=== PATIENT | female | born 1995 | race Caucasian/White ===

== ENCOUNTER 2018-04-12 12:25 | Inpatient (IN) | payer MEDICAID ==
[~2018-04-12] VITALS: Ht 162.6 cm; Wt 63.5 kg
[2018-04-12 14:35] LABS: AMPHET/METH SCREEN,URINE NEGATIVE (NEGATIVE); BARBITURATE SCREEN, URINE NEGATIVE (NEGATIVE); BENZODIAZEPINES SCREEN,URINE NEGATIVE (NEGATIVE); CANNABINOID SCREEN,URINE NEGATIVE (NEGATIVE); COCAINE SCREEN,URINE NEGATIVE (NEGATIVE); METHADONE SCREEN, URINE NEGATIVE (NEGATIVE); OPIATE SCREEN,URINE NEGATIVE (NEGATIVE)
[2018-04-12] MEDS ORDERED: OLAN10TA3 PO ×2 (14:38)
[2018-04-12] MEDS ORDERED: HYDR50CA10 PO (14:38)
[2018-04-12] MEDS ORDERED: IBUP-2070 PO (14:38)
[2018-04-12] MEDS ORDERED: CEPH500 PO (14:38)
[2018-04-12] MEDS ORDERED: DIPH50 PO (14:38)
[2018-04-12 14:39] LABS: PHENCYCLIDINE SCREEN,URINE NEGATIVE (NEGATIVE)
[2018-04-12 14:45] LABS: BASOPHILS % (AUTO) 0.9 % (0.0-2.0); EOSINOPHILS % (AUTO) 0.3 % (1.0-6.0); HEMATOCRIT 37.7 % (36-46); HEMOGLOBIN 12.4 g/dL (12.0-16.0); LYMPHOCYTES # (AUTO) 1.8 K/uL (1.0-4.8); LYMPHOCYTES % (AUTO) 17.7 % (22.0-44.0); MEAN CORPUSCULAR HEMOGLOBIN 29.3 pg (26.0-34.0); MEAN CORPUSCULAR HGB CONC 32.8 G/dL (31.0-37.0); MEAN CORPUSCULAR VOLUME 89 fL (80-100); MONOCYTES # (AUTO) 0.5 K/uL (0.1-1.0); MONOCYTES % (AUTO) 4.9 % (2.0-9.0); NEUTROPHILS # (AUTO) 7.7 K/uL (1.8-7.7); NEUTROPHILS % (AUTO) 76.2 % (40.0-70.0); PLATELET COUNT (AUTO) 364 K/uL (150-450); RED BLOOD CELL COUNT(AUTO) 4.22 MIL/uL (4.00-5.20); RED CELL DISTRIBUTION WIDTH 14.5 % (11.5-14.5)
[2018-04-12 14:57] LABS: ANION GAP 12 mmol/L (8-16); CALCIUM, TOTAL 9.4 mg/dL (8.8-10.5); CARBON DIOXIDE 24 mmol/L (22-29); CHLORIDE 105 mmol/L (98-107); CREATININE 0.46 mg/dL (0.60-1.30); GLOMERULAR FILTR. RATE CALC > 60 mL/min (>60); GLUCOSE,RANDOM 98 mg/dL (70-110); POTASSIUM 3.6 mmol/L (3.5-5.1); SODIUM SERUM 141 mmol/L (136-145); UREA NITROGEN, BLOOD 13 mg/dL (7-18)
[2018-04-12] MEDS ORDERED: LORazepam 2 MG/ML VIAL IM ONE ×2 (15:00→15:15)
[2018-04-12] MEDS ORDERED: HALOPERIDOL LACTATE 5 MG/ML VIAL IM ONE (15:00)
[2018-04-12 15:10] LABS: ALANINE AMINOTRANSFERASE 34 U/L (12-78); ALKALINE PHOSPHATASE 72 U/L (46-116); ASPARTATE AMINOTRANSFERASE 18 U/L (15-37); BILIRUBIN,TOTAL 0.2 mg/dL (0.1-1.0); HCG,QUANTITATIVE < 1 mIU/mL (0-6); TOTAL PROTEIN, SERUM 8.1 g/dL (6.4-8.2)
[2018-04-12] MEDS ORDERED: ZOLPIDEM TARTRATE 10 MG TABLET PO PRN (15:45)
[2018-04-12 19:05] VITALS: BP 118/76
[2018-04-12] MEDS ORDERED: LOPERAMIDE HCL 2 MG CAPSULE PO PRN (20:30)
[2018-04-12] MEDS ORDERED: GuaiFENesin/D-METHORPHAN [SUGAR-FREE] 200-20MG/10 ML SYRUP UDCUP PO PRN (20:30)
[2018-04-12] MEDS ORDERED: ALBUTEROL SULFATE HFA 90 MCG/PUFF 8 GM INHALER IH PRN (20:30)
[2018-04-12] MEDS ORDERED: PETROLATUM,WHITE 71 GM JELLY TP PRN (20:30)
[2018-04-12] MEDS ORDERED: CloNIDine HCL 0.1 MG TABLET PO PRN (20:30)
[2018-04-12] MEDS ORDERED: MAG HYDROX/AL HYDROX/SIMETH ES 30 ML SUSPENSION UDCUP PO PRN (20:30)
[2018-04-12] MEDS ORDERED: ONDANSETRON HCL 4 MG TABLET PO PRN (20:30)
[2018-04-12] MEDS ORDERED: ACETAMINOPHEN 325 MG TABLET PO PRN (20:30)
[2018-04-13 05:25] VITALS: BP 115/77
[2018-04-13 08:28] VITALS: BP 115/71
[2018-04-13 08:34] LABS: BASOPHILS % (AUTO) 0.9 % (0.0-2.0); EOSINOPHILS % (AUTO) 2.1 % (1.0-6.0); HEMATOCRIT 36.7 % (36-46); HEMOGLOBIN 12.2 g/dL (12.0-16.0); LYMPHOCYTES # (AUTO) 1.9 K/uL (1.0-4.8); LYMPHOCYTES % (AUTO) 23.4 % (22.0-44.0); MEAN CORPUSCULAR HEMOGLOBIN 29.6 pg (26.0-34.0); MEAN CORPUSCULAR HGB CONC 33.3 G/dL (31.0-37.0); MEAN CORPUSCULAR VOLUME 89 fL (80-100); MONOCYTES # (AUTO) 0.5 K/uL (0.1-1.0); MONOCYTES % (AUTO) 6.7 % (2.0-9.0); NEUTROPHILS # (AUTO) 5.4 K/uL (1.8-7.7); NEUTROPHILS % (AUTO) 66.9 % (40.0-70.0); PLATELET COUNT (AUTO) 371 K/uL (150-450); RED BLOOD CELL COUNT(AUTO) 4.13 MIL/uL (4.00-5.20); RED CELL DISTRIBUTION WIDTH 14.9 % (11.5-14.5)
[2018-04-13 08:49] LABS: HEMOGLOBIN A1C 5.4 % (4.5-6.2)
[2018-04-13 09:33] LABS: CHOL/HDL RATIO 2.8 (3.9-5.7); CHOLESTEROL 177 mg/dL (131-200); FREE T4 (FREE THYROXINE) 0.66 ng/dL (0.76-1.46); HCG,QUANTITATIVE < 1 mIU/mL (0-6); HDL CHOLESTEROL 63 mg/dL (40-60); LDL CHOL (CALC.) 104 mg/dL (0-130); THYROID STIMULATING HORMONE 1.74 uIU/mL (0.36-3.74); TRIGLYCERIDES 49 mg/dL (15-150)
[2018-04-13 09:51] LABS: ALANINE AMINOTRANSFERASE 30 U/L (12-78); ALBUMIN 3.6 g/dL (3.4-5.0); ALKALINE PHOSPHATASE 62 U/L (46-116); ANION GAP 12 mmol/L (8-16); ASPARTATE AMINOTRANSFERASE 15 U/L (15-37); BILIRUBIN,TOTAL 0.4 mg/dL (0.1-1.0); CARBON DIOXIDE 24 mmol/L (22-29); CHLORIDE 106 mmol/L (98-107); CREATININE 0.46 mg/dL (0.60-1.30); GLOMERULAR FILTR. RATE CALC > 60 mL/min (>60); GLUCOSE,RANDOM 83 mg/dL (70-110); POTASSIUM 4.1 mmol/L (3.5-5.1); SODIUM SERUM 142 mmol/L (136-145); TOTAL PROTEIN, SERUM 7.6 g/dL (6.4-8.2); UREA NITROGEN, BLOOD 17 mg/dL (7-18)
[2018-04-13] MEDS: DIVALPROEX SODIUM 500 MG DR TABLET PO SCH ×2 (10:17→16:38)
[2018-04-13] MEDS: OLANZapine 10 MG TABLET PO SCH ×2 (10:17→20:42)
[2018-04-13] MEDS: IBUPROFEN 400 MG TABLET PO PRN (10:49)
[2018-04-13 16:04] VITALS: BP 108/63
[2018-04-14] MEDS ORDERED: ALBUTEROL SULFATE HFA 90 MCG/PUFF 8 GM INHALER IH PRN (07:00)
[2018-04-14] MEDS ORDERED: ACETAMINOPHEN 325 MG TABLET PO PRN (07:00)
[2018-04-14] MEDS ORDERED: MAGNESIUM HYDROXIDE SUSPENSION 30 ML UDCUP PO PRN (07:00)
[2018-04-14] MEDS ORDERED: MAG HYDROX/AL HYDROX/SIMETH ES 30 ML SUSPENSION UDCUP PO PRN (07:00)
[2018-04-14] MEDS ORDERED: DOCUSATE SODIUM 100 MG CAPSULE PO PRN (07:00)
[2018-04-14] MEDS ORDERED: PETROLATUM,WHITE 71 GM JELLY TP PRN (07:00)
[2018-04-14] MEDS ORDERED: IBUPROFEN 400 MG TABLET PO PRN (07:00)
[2018-04-14] MEDS ORDERED: LOPERAMIDE HCL 2 MG CAPSULE PO PRN (07:00)
[2018-04-14] MEDS ORDERED: NICOTINE 14 MG/24 HOUR PATCH TD PRN (07:00)
[2018-04-14] MEDS ORDERED: ONDANSETRON HCL 4 MG TABLET PO PRN (07:00)
[2018-04-14] MEDS ORDERED: GuaiFENesin/D-METHORPHAN [SUGAR-FREE] 200-20MG/10 ML SYRUP UDCUP PO PRN (07:00)
[2018-04-14] MEDS ORDERED: CloNIDine HCL 0.1 MG TABLET PO PRN (07:00)
[2018-04-14 07:11] VITALS: BP 107/75
[2018-04-14 08:17] VITALS: BP 96/74
[2018-04-14] MEDS: DIVALPROEX SODIUM 500 MG DR TABLET PO SCH ×2 (08:19→16:41)
[2018-04-14] MEDS: OLANZapine 10 MG TABLET PO SCH ×2 (08:19→20:24)
[2018-04-14] MEDS: NICOTINE 14 MG/24 HOUR PATCH TD PRN (09:31)
[2018-04-14 16:12] VITALS: BP 118/72
[2018-04-14] MEDS: LORazepam 2 MG TABLET PO PRN (16:41)
[2018-04-15 06:34] VITALS: BP 114/82
[2018-04-15] MEDS: OLANZapine 10 MG TABLET PO SCH ×2 (08:06→20:57)
[2018-04-15] MEDS: DIVALPROEX SODIUM 500 MG DR TABLET PO SCH ×2 (08:06→16:58)
[2018-04-15 08:25] VITALS: BP 115/62
[2018-04-15 08:25] LABS: BASOPHILS % (AUTO) 0.9 % (0.0-2.0); EOSINOPHILS % (AUTO) 2.7 % (1.0-6.0); HEMATOCRIT 36.9 % (36-46); HEMOGLOBIN 12.1 g/dL (12.0-16.0); LYMPHOCYTES # (AUTO) 1.8 K/uL (1.0-4.8); LYMPHOCYTES % (AUTO) 22.2 % (22.0-44.0); MEAN CORPUSCULAR HEMOGLOBIN 29.6 pg (26.0-34.0); MEAN CORPUSCULAR HGB CONC 32.8 G/dL (31.0-37.0); MEAN CORPUSCULAR VOLUME 90 fL (80-100); MONOCYTES # (AUTO) 0.6 K/uL (0.1-1.0); MONOCYTES % (AUTO) 7.2 % (2.0-9.0); NEUTROPHILS # (AUTO) 5.5 K/uL (1.8-7.7); PLATELET COUNT (AUTO) 340 K/uL (150-450); RED CELL DISTRIBUTION WIDTH 14.9 % (11.5-14.5)
[2018-04-15 09:00] LABS: HEMOGLOBIN A1C 4.9 % (4.5-6.2)
[2018-04-15 09:21] LABS: ALANINE AMINOTRANSFERASE 25 U/L (12-78); ALBUMIN 3.4 g/dL (3.4-5.0); ALKALINE PHOSPHATASE 58 U/L (46-116); ANION GAP 8 mmol/L (8-16); ASPARTATE AMINOTRANSFERASE 11 U/L (15-37); BILIRUBIN,TOTAL 0.3 mg/dL (0.1-1.0); CARBON DIOXIDE 28 mmol/L (22-29); CHLORIDE 104 mmol/L (98-107); CHOL/HDL RATIO 3.1 (3.9-5.7); CHOLESTEROL 174 mg/dL (131-200); GLOMERULAR FILTR. RATE CALC > 60 mL/min (>60); GLUCOSE,RANDOM 77 mg/dL (70-110); HDL CHOLESTEROL 56 mg/dL (40-60); LDL CHOL (CALC.) 110 mg/dL (0-130); POTASSIUM 4.1 mmol/L (3.5-5.1); SODIUM SERUM 140 mmol/L (136-145); TOTAL PROTEIN, SERUM 7.3 g/dL (6.4-8.2); TRIGLYCERIDES 38 mg/dL (15-150); UREA NITROGEN, BLOOD 18 mg/dL (7-18)
[2018-04-15] MEDS: NICOTINE 14 MG/24 HOUR PATCH TD PRN (09:36)
[2018-04-15] MEDS: LORazepam 2 MG TABLET PO PRN ×2 (09:36→16:44)
[2018-04-15] MEDS: DOCUSATE SODIUM 100 MG CAPSULE PO PRN (13:27)
[2018-04-15] MEDS: IBUPROFEN 400 MG TABLET PO PRN (16:43)
[2018-04-15 17:42] VITALS: BP 136/84
[2018-04-16 07:01] VITALS: BP 122/84
[2018-04-16] MEDS: OLANZapine 10 MG TABLET PO SCH ×2 (08:06→19:41)
[2018-04-16] MEDS: DIVALPROEX SODIUM 500 MG DR TABLET PO SCH ×2 (08:06→16:16)
[2018-04-16] MEDS: MAGNESIUM HYDROXIDE SUSPENSION 30 ML UDCUP PO PRN (08:07)
[2018-04-16 08:16] VITALS: BP 122/81
[2018-04-16] MEDS: LORazepam 2 MG TABLET PO PRN ×2 (09:04→17:21)
[2018-04-16 16:04] VITALS: BP 114/69
[2018-04-17 00:45] VITALS: BP 105/63
[2018-04-17] MEDS: OLANZapine 10 MG TABLET PO SCH ×2 (08:25→20:26)
[2018-04-17] MEDS: DIVALPROEX SODIUM 500 MG DR TABLET PO SCH ×2 (08:25→16:23)
[2018-04-17 09:05] VITALS: BP 110/64
[2018-04-17] MEDS: LORazepam 2 MG TABLET PO PRN (10:13)
[2018-04-17] MEDS: HALOPERIDOL 5 MG TABLET PO PRN (11:15)
[2018-04-17 16:43] VITALS: BP 122/76
[2018-04-18 00:46] VITALS: BP 120/72
[2018-04-18] MEDS: DIVALPROEX SODIUM 500 MG DR TABLET PO SCH ×2 (08:16→16:03)
[2018-04-18] MEDS: OLANZapine 10 MG TABLET PO SCH ×2 (08:16→20:07)
[2018-04-18 08:31] VITALS: BP 120/75
[2018-04-18] MEDS: TERBINAFINE HCL 1% 30 GM CREAM TP SCH ×2 (09:30→16:04)
[2018-04-18] MEDS: HALOPERIDOL 5 MG TABLET PO PRN (09:31)
[2018-04-18] MEDS: AMOX TR/POT CLAV 500 MG/125 MG TABLET PO SCH ×2 (10:25→16:03)
[2018-04-18] MEDS: LORazepam 2 MG TABLET PO PRN (12:03)
[2018-04-18 14:34] VITALS: BP 115/81
[2018-04-18] MEDS: IBUPROFEN 400 MG TABLET PO PRN (14:34)
[2018-04-18] MEDS: NICOTINE 14 MG/24 HOUR PATCH TD PRN (14:34)
[2018-04-18 16:04] VITALS: BP 117/71
[2018-04-19] MEDS: AMOX TR/POT CLAV 500 MG/125 MG TABLET PO SCH ×3 (00:19→16:42)
[2018-04-19 01:07] VITALS: BP 120/81
[2018-04-19 08:38] VITALS: BP 120/67
[2018-04-19] MEDS: OLANZapine 10 MG TABLET PO SCH ×2 (08:45→20:38)
[2018-04-19] MEDS: DIVALPROEX SODIUM 500 MG DR TABLET PO SCH ×2 (08:45→16:43)
[2018-04-19] MEDS: TERBINAFINE HCL 1% 30 GM CREAM TP SCH ×2 (08:47→16:43)
[2018-04-19] MEDS: MAGNESIUM HYDROXIDE SUSPENSION 30 ML UDCUP PO PRN (08:49)
[2018-04-19] MEDS: LORazepam 2 MG TABLET PO PRN ×2 (10:10→16:43)
[2018-04-19 16:42] VITALS: BP 116/77
[2018-04-19] MEDS: DOCUSATE SODIUM 100 MG CAPSULE PO PRN (17:45)
[2018-04-20] MEDS: AMOX TR/POT CLAV 500 MG/125 MG TABLET PO SCH ×2 (00:08→08:49)
[2018-04-20 01:24] VITALS: BP 107/63
[2018-04-20 08:09] VITALS: BP 119/74
[2018-04-20] MEDS: OLANZapine 10 MG TABLET PO SCH (08:10)
[2018-04-20] MEDS: DIVALPROEX SODIUM 500 MG DR TABLET PO SCH (08:11)
[2018-04-20] MEDS: TERBINAFINE HCL 1% 30 GM CREAM TP SCH (08:25)
[2018-04-20] MEDS: LORazepam 2 MG TABLET PO PRN (08:49)
[2018-04-20] MEDS ORDERED: DIVA-78 PO (09:22)
[2018-04-20] MEDS ORDERED: AMOX1TAB15 PO (09:22)
== END 2018-04-20 13:40 | disposition home or self-care (01) | DRG 750 ==
LOC: EMS 12:26 → B2S 16:52
PROVIDERS: ADMIT Psychiatry & Neurology Child & Adolescent Psychiatry; ATTEND Psychiatry & Neurology Child & Adolescent Psychiatry
DX: F25.0 Schizoaffective disorder, bipolar type (principal); F15.10 Other stimulant abuse, uncomplicated; F41.9 Anxiety disorder, unspecified; I10 Essential (primary) hypertension; F17.210 Nicotine dependence, cigarettes, uncomplicated; K02.9 Dental caries, unspecified
CPT/HCPCS: 83036; 84436; 84439; 84443; 90686; 96372; G0480; J1630; J2060

== ENCOUNTER 2018-09-03 12:14 | Emergency (ER) | payer MEDICAID ==
[~2018-09-03] VITALS: Ht 167.6 cm; Wt 68.2 kg
[~2018-09-03 12:14] MED LIST: AMOX1TAB15 PO; DIVA-78 PO; OLAN10TA3 PO
[2018-09-03] MEDS: KETOROLAC TROMETHAMINE 30 MG/ML VIAL IM ONE (13:29)
[2018-09-03 14:00] VITALS: BP 117/68
== END 2018-09-03 14:12 | disposition home or self-care (01) ==
LOC: EMS 12:17
DX: K02.9 Dental caries, unspecified (principal); I10 Essential (primary) hypertension; F20.9 Schizophrenia, unspecified; F12.90 Cannabis use, unspecified, uncomplicated; F15.90 Other stimulant use, unspecified, uncomplicated; F17.210 Nicotine dependence, cigarettes, uncomplicated
CPT/HCPCS: 96372; 99283; J1885